=== PATIENT | male | born 1980 | race Caucasian/White ===

== ENCOUNTER 2024-02-23 18:20 | Emergency (ER) | payer SELFPAY ==
[2024-02-23 18:59] LABS: #Basophils Less than 0.03 10x3/uL (0.0-0.2); #Eosinophils Less than 0.03 10x3/uL (0.0-0.7); %Basophils 0.1 % (0.0-1.0); %Lymphocytes 6.2 % (21.0-51.0); %Monocytes 5.8 % (0.0-10.0); %Neutrophils 87.2 % (42.0-75.0); Hematocrit 31.2 % (42.0-52.0); Mean Corpuscular HGB CONC 32.1 g/dL (32.0-36.0); Mean Corpuscular Hemoglobin 27.5 pg (27.0-31.0); Mean Platelet Volume 9.5 fL (7.4-10.4); Platelet Count 468 10x3/uL (130-400); RBC Distribution Width 12.4 % (11.5-14.5); Red Blood Cell (RBC) Count 3.63 mill/uL (4.70-6.10)
[2024-02-23 19:30] LABS: ALT (SGPT) 9 U/L (8-55); AST (SGOT) 12 U/L (5-34); Albumin 2.1 g/dL (3.5-5.0); Alkaline Phosphatase 155 U/L (40-110); Anion Gap 23 mmol/L (10-20); BUN (Urea Nitrogen) 11 mg/dL (8.9-20.6); Bilirubin, Total 0.3 mg/dL (0.2-1.2); Calc. Creatinine Clearance 0 mL/min (70-130); Calcium 9.4 mg/dL (7.8-10.44); Carbon Dioxide 15 mmol/L (22-29); Chloride 92 mmol/L (98-107); Estimated GFR 90; Globulin 6.3 g/dL (2.4-3.5); Glucose 694 mg/dL (70-105); Protein, Total 8.4 g/dL (6.0-8.3); Sodium 126 mmol/L (136-145)
[2024-02-23 19:35] LABS: CRP,High Sensitivity (Inhouse) 25.56 mg/dL (< or = 0.5)
[2024-02-23 19:52] LABS: Analyzer IN Cardio ER; Base Excess -7.9 mEq/L (-2.0 to +3.0); Calcium, Ionized (venous) 1.19 mmol/L (1.16-1.32); Chloride (VBG) 93 mmol/L (98-106); Hematocrit-VBG 31 % (42.0-52.0); Hemoglobin (Hb) 10.7 g/dL (13.2-17.3); Sodium 129 mmol/L (133-146); pH (venous) 7.334 (7.32-7.43)
[2024-02-23] MEDS ORDERED: cefTRIAXone (ROCEPHIN) 2 GM VIAL ONE (19:53)
[2024-02-23] MEDS ORDERED: Sodium Chloride 0.9% 100 ML ONE (19:53)
[2024-02-23] MEDS ORDERED: Cefepime 2 GM VIAL ONE (19:55)
[2024-02-23] MEDS ORDERED: Vancomycin 1 GM/200 ML (FROZEN) BAG ONE (20:39)
[2024-02-23] MEDS ORDERED: INSULIN REGULAR IN 0.9 % NACL 100 ML ONE (21:29)
[2024-02-23] MEDS ORDERED: traMADol HCl 50 MG TAB ONE (22:35)
[2024-02-23] MEDS ORDERED: DULoxetine 60 MG CAP ONE (22:35)
[2024-02-23] MEDS ORDERED: Gabapentin 300 MG CAP ONE (22:35)
== END 2024-02-23 23:23 | disposition short-term general hospital (02) ==
LOC: ERS 18:20
DX: M86.8X7 Other osteomyelitis, ankle and foot (principal); T81.82XA Emphysema (subcutaneous) resulting from a procedure, initial encounter; E11.10 Type 2 diabetes mellitus with ketoacidosis without coma; R00.0 Tachycardia, unspecified; E11.9 Type 2 diabetes mellitus without complications; Z79.4 Long term (current) use of insulin; Z55.6 Problems related to health literacy; Z75.3 Unavailability and inaccessibility of health-care facilities
CPT/HCPCS: 36415; 36416; 80053; 82010; 82805; 83605; 85025; 86141; 87040; 87077; 87149; 87186; 96365; 96366; 96367; 96375; J0692; J0696; J1815; J3370-JW